=== PATIENT | male | born 1985 | race Caucasian/White ===

== ENCOUNTER → 2022-01-20 | Outpatient (CLI) | payer OTHER, SELFPAY ==
--- NOTE | 2022-01-20 13:00 | VAS_PTH ---
PATIENT: TANIA PEREZ LOC: [facility] U#:[id number] AGE/SX: 36/M ROOM: RE01/20/[address]: Dr. Arnoldo Holcomb MD : 1985 BED: DIS: 01/20/2022 SPEC #: [id number] RECD: 01/20/22 15:17 STATUS: BARRERA YOLY #: [id number] CHARO: 01/20/22 13:[address]: Arnoldo Holcomb DEPT: SURGICAL PATHOLOGY RECD BY: Tayler Saba Tissues: A - Vas deferens, NOS B - Vas deferens, NOS Procedures: Surgery Specimen Level II HEADER OPERATION: Bilateral partial vasectomy PRE-OP DIAGNOSIS: Sterilization TISSUE SUBMITTED: A ? Right vas deferens, B ? Left vas deferens MICROSCOPIC DIAGNOSIS A. Right vas deferens, segmental vasectomy: Complete cross-section of vas deferens with no pathologic change. B. Left vas deferens, segmental vasectomy: Complete cross-section of vas deferens with no pathologic change. AM:irving 01/24/2022 MICROSCOPIC DESCRIPTION Slides are reviewed. GROSS DESCRIPTION A - Received is one container designated right vas deferens. The specimen consists of a tubular segment of vuong soft tissue measuring 0.5 cm in length and 0.2 cm in diameter. The specimen is sectioned and submitted entirely in one cassette. B - Received is one container designated left vas deferens. The specimen consists of a tubular segment of vuong soft tissue measuring 0.5 cm in length and 0.2 cm in diameter. The specimen is sectioned and submitted entirely in one cassette. / NIKKI:irving 01/23/2022 TC:4 CPT: 83744 x2
== END | disposition home or self-care (01) ==
LOC: LAB 15:35
PROVIDERS: Visit Provider Surgery
DX: Z30.2 Encounter for sterilization (principal)
CPT/HCPCS: 88302

== ENCOUNTER → 2022-03-11 | Outpatient (CLI) | payer OTHER, SELFPAY ==
[2022-03-11 11:53] LABS: Semen Analysis Post Vas ABSENT
[2022-03-14 09:35] LABS: Pathologist Review Reviewed
== END | disposition home or self-care (01) ==
LOC: LABSPEC 10:44
PROVIDERS: Referring Provider Surgery; Visit Provider Surgery
DX: Z30.2 Encounter for sterilization (principal)
CPT/HCPCS: 89321

== ENCOUNTER → 2022-03-18 | Outpatient (CLI) | payer OTHER, SELFPAY ==
[2022-03-18 11:49] LABS: Semen Analysis Post Vas ABSENT
[2022-03-20 12:49] LABS: Pathologist Review Reviewed
== END | disposition home or self-care (01) ==
LOC: LAB 08:40
PROVIDERS: Referring Provider Surgery; Visit Provider Surgery
DX: Z30.2 Encounter for sterilization (principal)
CPT/HCPCS: 89321